=== PATIENT | male | born 1940 | race Two or more races ===

== ENCOUNTER 2021-10-06 13:29 | Outpatient (REF) | payer OTHER, SELFPAY ==
--- NOTE | ~2021-10-06 | XR_ITS ---
EXAMINATION: XR HIP, LEFT CLINICAL INFORMATION: Pain. COMPARISON: None TECHNIQUE: Two views of the left hip. FINDINGS: Bones and soft tissues are normal. No fracture. Alignment is anatomic. Hip joint space is maintained. XR/XR hip LT min 2V IMPRESSION: Unremarkable left hip.
== END 2021-10-06 13:30 | disposition home or self-care (01) ==
LOC: HO.XRAY 13:29
PROVIDERS: PCP Internal Medicine; Visit Provider Internal Medicine
DX: M25.552 Pain in left hip (principal)
CPT/HCPCS: 73502

== ENCOUNTER → 2021-11-06 11:10 | Outpatient (BNVA) | payer OTHER, SELFPAY | PROVIDERS: PCP Internal Medicine; Visit Provider Physician Assistant | DX: M54.16 Radiculopathy, lumbar region (principal) | CPT/HCPCS: 99202 ==

== ENCOUNTER 2021-12-14 11:32 | Outpatient (REF) | payer OTHER, SELFPAY ==
--- NOTE | ~2021-12-14 | XR_ITS ---
EXAMINATION: XR SACROILIAC JOINTS CLINICAL INFORMATION: Sacroiliitis COMPARISON: None TECHNIQUE: 3 views of the sacroiliac joints FINDINGS: Increased sclerosis and near complete fusion of the bilateral sacroiliac joints at the superior aspect. The inferior aspect of the bilateral sacroiliac joints is preserved. XR/XR sacroiliac joint min 3V IMPRESSION: Increased sclerosis and near complete fusion of the bilateral sacroiliac joints at the superior aspect.
--- NOTE | ~2021-12-14 | XR_ITS ---
EXAMINATION: XR lumbar spine 6V w bending CLINICAL INFORMATION: Reason for Exam M54.16 - Radiculopathy, lumbar region COMPARISON: None TECHNIQUE: 6 views of the lumbar spine FINDINGS: 5 nonrib-bearing lumbar-type vertebral bodies. Vertebral body heights are maintained. Alignment is maintained. No subluxation between flexion and extension views. Mild multilevel degenerative disc disease with loss of disc space height, facet arthropathy and disc osteophyte complexes. This is worst at L2/L3. Atherosclerotic calcifications of the abdominal aorta. XR/XR lumbar spine 6V w bending IMPRESSION: 1. Mild spondylosis of the lumbar spine, as above detailed. 2. No significant spondylolisthesis.
== END 2021-12-14 11:33 | disposition home or self-care (01) ==
LOC: HO.XRAY 11:32
PROVIDERS: PCP Internal Medicine; Visit Provider Nurse Practitioner Family
DX: M54.16 Radiculopathy, lumbar region (principal); M46.1 Sacroiliitis, not elsewhere classified; M19.90 Unspecified osteoarthritis, unspecified site; M47.816 Spondylosis without myelopathy or radiculopathy, lumbar region; M25.551 Pain in right hip; M25.552 Pain in left hip
CPT/HCPCS: 72114; 72202; 99202

== ENCOUNTER → 2022-02-09 10:21 | Outpatient (BNVA) | payer OTHER, SELFPAY | PROVIDERS: PCP Internal Medicine; Visit Provider Nurse Practitioner Family | DX: M47.816 Spondylosis without myelopathy or radiculopathy, lumbar region (principal); M46.1 Sacroiliitis, not elsewhere classified; M19.90 Unspecified osteoarthritis, unspecified site; M53.3 Sacrococcygeal disorders, not elsewhere classified | CPT/HCPCS: 99212 ==

== ENCOUNTER 2022-02-10 09:00 | Outpatient (RCR) | payer OTHER, SELFPAY ==
--- NOTE | 2022-01-06 14:45 | MHC.PT.EP ---
[facility] [place] Office [place] Office [place] Office [address] Kofi Diez [address] [phone] F: [phone] F: [phone] F: [phone] F: [phone] Physical Therapy Plan of Care Date of Evaluation: Date of Surgery: NA Diagnosis: SACROILIITIS Assessment: USED [employer] WATCHSTANDER FOR EVAL. Pt IS 82 YO M REFERRED TO PT FROM PAIN MANAGEMENT (DR VOSS). Pt WAS INITIALLY SEEN BY ORTHO IN OCT FOR L HIP/LE PAIN. THOUGHT TO BE LUMBAR RADICULOPATHY AND REFERRED TO PAIN MANAGEMENT. Pt NOW REFERRED TO PT. OF NOTE, SOME CONFUSION ON THE PART OF THE Pt TO WHY REFERRED TO PT. 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 REPORTS PAIN IN HIPS ONLY WITH STAIRS AND INCREASED WALK (REPORTS NO PAIN WHEN JUST SITTING). REPORTS SOME L LE SXS THAT COME AND GO. 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 IF HE WANTS RX FOR R ARM WILL NEED TO GET ANOTHER SCRIPT/OT REFERRAL BUT EXPLAINED THAT 11 YEARS POST CVA SO MAY NOT AFFECT NERVE ISSUE BUT MAY BE ABLE TO AFFECT STRENGTH/FLEXIILITY. Pt WITH GOOD OVERALL HIP LE STRENGTH WITH DECREASED FLEXIBILITY NOTED. PER XRAYS, Pt WITH SPONDYLOSIS AND NEAR COMPLETE FUSION OF SI JTS. Pt MAY BENEFIT FROM SHORT TRIAL OF PT FOR HOME PROG FOR LE STRETCH/STRENGTHEN, CORE WORK ST WORK PRN. OF NOTE, WHEN MAKING APPTS FOR Pt, HIS GRANDDTR WANTED TO START THE 2ND WEEK OF JANUARY BECAUSE SHE IS AND HAS MULTIPLE MD APPTS. Frequency and Duration: The patient will be seen 1X/WK X6WKS Short Term Goals: 1. INCREASED AWARENESS POSTURE AND BACK CARE 2. INCREASED HS FLEX 5 DEGREES B 3. CENTRALIZED SXS OUT OF L LE Contract Manager Goals: 1. DECREASED HIP PAIN AT LEAST 50% WITH ADLS ([facility]) 2. I HEP WITH DC EX PLAN Treatment Plan: Modalities to reduce pain, spasms and effusion. Manual therapy to restore motion and function. Therapeutic exercise to improve strength and flexibility. Neuromuscular re-education for posture and balance. Therapeutic activities to return to functional activities of daily living. Electronically signed by: JUAN CARLOS ANDERS PT Please sign and return to therapist. Thank you for your referral.
--- NOTE | 2022-04-14 14:58 | MHC.PT.DC ---
[facility] [place] Office [place] Office [place] Office [address] Kofi Diez [address] [phone] F: [phone] F: [phone] F: [phone] F: [phone] Physical Therapy Discharge Report Diagnosis: SACROILIITIS Date of Surgery: NA Date of Evaluation: 01/06/22 Date of Discharge: 04/14/22 Treatments to Date: 4 Cancellations to Date: No Shows to Date: Discharge Status: Independent with HEP Recommend MD Follow-up Discharge Summary: Pt SEEN FOR INIT EVAL AND 3 VISITS. AT LAST VISIT ON 02/10/22 AWAITING CALL FOR SI INJECTIONS, ?BENEFIT FROM PELVIC [place] (SUP IN ). ASSESS POSITIONAL TX'. Pt THEN REQUESTED TAKING THE FOLLOWING WEEK OFF FROM PT. Pt THEN NO SHOWED HIS LAST VISIT ON 02/24/22 Electronically signed by: JUAN CARLOS ANDERS PT Please sign and return to therapist. Thank you for your referral.
== END 2022-04-14 14:58 | disposition home or self-care (01) ==
LOC: HO.PTWFD 09:00
PROVIDERS: PCP Internal Medicine; Visit Provider Nurse Practitioner Family
DX: M46.1 Sacroiliitis, not elsewhere classified (principal); M54.16 Radiculopathy, lumbar region; M25.551 Pain in right hip; M25.552 Pain in left hip; M47.816 Spondylosis without myelopathy or radiculopathy, lumbar region; M19.90 Unspecified osteoarthritis, unspecified site
CPT/HCPCS: 97110; 97140; 97162; 97535

== ENCOUNTER 2022-03-18 09:48 | Day surgery (SDC) | payer OTHER, SELFPAY ==
[2022-03-11 11:31] VITALS: BMI 23.2
--- NOTE | 2022-03-17 09:45 | HO.ANESPROP2 ---
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 Social History Social History Are you a primary home health aide caregiver to a significant other at home: No Patient Tobacco Use Status: Former Tobacco user Use of substances other than those prescribed or required for medical reasons: No Are you DNR?: No Advance Directives: No Advance Directives Information Provided: Yes Advance Directives on File: No Recently lost weight without trying: No Nutrition Risks: Surgical patient >75years Poor oral hygiene: No Current occupational status: disabled 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 Meds Allergies Allergy/AdvReac Type Severity Reaction Status Date / Time No Known Allergies Allergy Verified 03/11/22 11:30 Home Medications Medication Instructions Recorded Confirmed Last Taken Type amlodipine 5 mg tablet 5 mg PO DAILY 11/06/21 03/11/22 Unknown History atorvastatin 80 mg tablet 80 mg PO DAILY 11/06/21 03/11/22 Unknown History carboxymethylcellulose 0.5 1 drp ophthalmic (eye) QID 11/06/21 03/11/22 Unknown History %-glycerin 0.9 % eye drops (Refresh Relieva) clopidogrel 75 mg tablet 75 mg PO DAILY 11/06/21 03/11/22 Unknown History finasteride 5 mg tablet 5 mg PO DAILY 11/06/21 03/11/22 Unknown History pantoprazole 20 mg tablet,delayed 20 mg PO BID 11/06/21 03/11/22 Unknown History release tamsulosin 0.4 mg capsule 0.4 mg PO DAILY 11/06/21 03/11/22 Unknown History haloperidol 1 mg tablet 1 mg PO BEDTIME 02/09/22 03/11/22 Unknown History Exam Exam Date and Time: March 17, 2022 0945 Height,Weight and Vital Signs: Height 5 ft 6 in Weight 65.317 kg Assessment and Plan Assessment Anesthesia Assessment: Chart Reviewed Documented by User: Juan Ramon Roa MD 03/18/22 11:16 [facility] Past Medical History Medical History (Updated 03/11/22 @ 11:31 by Tracy Corrales RN) GERD (gastroesophageal reflux disease) High blood pressure High cholesterol 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 Family History Family history of problems with anesthesia: No Surgical History History of Problems with Anesthesia: No Social History Social History Are you a primary home health aide caregiver to a significant other at home: No Patient Tobacco Use Status: Former Tobacco user Use of substances other than those prescribed or required for medical reasons: No Are you DNR?: No Advance Directives: No Advance Directives Information Provided: Yes Advance Directives on File: No Recently lost weight without trying: No Nutrition Risks: Surgical patient >75years Poor oral hygiene: No Current occupational status: disabled 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 Meds Allergies Allergy/AdvReac Type Severity Reaction Status Date / Time No Known Allergies Allergy Verified 03/11/22 11:30 Home Medications Medication Instructions Recorded Confirmed Last Taken Type amlodipine 5 mg tablet 5 mg PO DAILY 11/06/21 03/11/22 Unknown History atorvastatin 80 mg tablet 80 mg PO DAILY 11/06/21 03/11/22 Unknown History carboxymethylcellulose 0.5 1 drp ophthalmic (eye) QID 11/06/21 03/11/22 Unknown History %-glycerin 0.9 % eye drops (Refresh Relieva) clopidogrel 75 mg tablet 75 mg PO DAILY 11/06/21 03/11/22 Unknown History finasteride 5 mg tablet 5 mg PO DAILY 11/06/21 03/11/22 Unknown History pantoprazole 20 mg tablet,delayed 20 mg PO BID 11/06/21 03/11/22 Unknown History release tamsulosin 0.4 mg capsule 0.4 mg PO DAILY 11/06/21 03/11/22 Unknown History haloperidol 1 mg tablet 1 mg PO BEDTIME 02/09/22 03/11/22 Unknown History Exam Airway Mallampati Class: II TM Dist: >3cm Neck ROM: Limited Heart: rrr Lungs: cta Assessment and Plan Assessment Anesthesia Assessment: Anesthesia Plan Discussed Final Anesthetic Review Family History of Problems with Anesthesia: No History of Problems with Anesthesia: No NPO: Yes ASA Class: III Final Preanesthetic Review: No Changes in Pt Med Stat, Meds/Allgs Chart Reviewed, Consent Obtained/Reviewed and Anes Risks/Benef Reviewed Patient Risk: Intermediate Procedure Risk: Low Anesthetic Plan Anesthetic Plan: MAC: and Agree w/ Assess. and Plan Disposition: Standard PACU
--- NOTE | ~2022-03-18 | FL_ITS ---
EXAMINATION: XR FLUOROSCOPY WITH IMAGES CLINICAL INFORMATION: SI joint pain. COMPARISON: None. TECHNIQUE: Fluoroscopy Supervised By: Dr. Migue Celaya. Fluoroscopy Time: 0.4 minutes. Cumulative Dose: 4.03 mGy-cm DAP: 1.09 Gycm2. Images: 2. FINDINGS: There are 2 digital images obtained of the SI joints revealing needle positioned along the left and right SI joints with contrast opacifying the soft tissues. No bony abnormalities seen involving the SI joints. FL/FL guidance in OR IMPRESSION: Fluoroscopy was provided to referring physician for SI joint pain management.
[2022-03-18] MEDS: Lactated Ringers 1,000 ML 100 ML IVCONT (11:09)
--- NOTE | 2022-03-18 11:25 | P.HPSUR_ITS ---
Pre-Procedural Eval Section A Date of Service: 03/18/22 The patient is an INPATIENT: No Changes since office visit: Yes Patient answered all questions The History & Physical has been completed within 30 days and I have reviewed it.: No Section B Chief Complaint: Sacrococcygeal disorders,sacroiliitis Details of Present Illness: as above Relevant Family History (Specify if Yes): No Relevant Social History: None Present Medications: see Short Stay Collaborative assessment Medical History: No relevant PMH History of Previous Operations: No relevant previous surgery Allergies: Allergies Allergy/AdvReac Type Severity Reaction Status Date / Time No Known Allergies Allergy Verified 03/11/22 11:30 Review of Systems Sugical H&P ROS: Negative: Constitution, Cardiovascular, Respiratory, Neurological, Psychiatric, Hem-Onc, Allergic/Immunologic, Gastrointestinal, Genitourinary, Musculoskeletal, Integumentary, Endocrine and Eyes/Ears/Nose/Throat Exam Surgical H&P Exam: Normal: HEENT, Normal: Heart, Normal: Lungs, Normal: Extremities, Normal: Abdomen, Normal: Skin and Normal: Neurological Plan Diagnosis/Plan: Unchanged I have reviewed the history and physical and performed a pertinent physical examination on my patient. No changes have occurred unless specified. power and recovery supervisor ([employer]) was used to obtain the informed consent Time Spent With Patient Time: Total time managing care of this patient today _5___ minutes.
--- NOTE | 2022-03-18 12:02 | P.BOP_ITS ---
Brief Operative Note Date of Service: 03/18/22 Pre-op diagnosis: Sacroiliitis, B/l SI joint pain Post-op diagnosis: same Procedure: bilateral sacroiliac joint injection Surgeon: Migue Celaya MD Anesthesia: MAC Was an Senior Portfolio Manager used for this Procedure?: No Estimated blood loss (mL): 1 Condition: stable Disposition: PACU
--- NOTE | 2022-03-18 12:05 | W.PM.OPN ---
Operative Note Operative Note Date of Service: 03/18/22 Narrative: Therapeutic bilateral sacroiliac joint injection. Informed consent was explained thoroughly to the patient.? All questions about benefits and risks for the procedure were answered. [facility] [place] helping with the consent. ? Patient came to the operating room he was positioned prone on the operating table with the pillow under her pelvis.?ASA monitors were applied and the patient was sedated. ? time out was performed delineating name and of the patient side and site of the injection ? lower back and buttocks was prepped with ChloraPrep prepped and draped with sterile towels.? C-arm was brought over the operating field and sq picture of patient's pelvis was demonstrated on the screen.? For the each joint tilting C-arm contralateral to the site of the joint 15? the most posterior portion of the joints were clearly delineated on the screen first right and after that left..? Skin was injected in the projection of the each joint slightly medial to the location of the joint with 25 gauge 1/2 inch needle using local lidocaine 2% without epinephrine. ? After that 22 gauge 3 and 1/2 inch needle was driven to the each joint in tunnel vision fashion.? When needle entered the joint capsule injection of the contrast was performed demonstrating intra-articular and minimally periarticular spread of the contrast.? After that 4 cc. ofropivacaine 0.5%mixed with kenalog 40 mg was injected into the joint.? Upon completion of the injections the needles was removed, Sterile dressing was applied.? The patient tolerated procedure well.
[2022-03-18 12:06] VITALS: BP 120/59; PULSE 75; RESP 18; TEMP 36.8; O2SAT 100
[2022-03-18 12:21] VITALS: BP 131/60; PULSE 77; RESP 16; TEMP 36.6; O2SAT 97
[2022-03-18 12:36] VITALS: BP 129/52; PULSE 71; RESP 16; TEMP 36.7; O2SAT 99
== END 2022-03-18 12:40 | disposition home or self-care (01) ==
PROVIDERS: PCP Internal Medicine; Visit Provider Anesthesiology
PROC: 3E0U33Z Introduction of Anti-inflammatory into Joints, Percutaneous Approach (ICD-10-PCS; CPT 27096; principal; 2022-03-18 11:30)
DX: M46.1 Sacroiliitis, not elsewhere classified (principal); M53.3 Sacrococcygeal disorders, not elsewhere classified; M47.816 Spondylosis without myelopathy or radiculopathy, lumbar region; M19.90 Unspecified osteoarthritis, unspecified site; K21.9 Gastro-esophageal reflux disease without esophagitis; I10 Essential (primary) hypertension; E78.00 Pure hypercholesterolemia, unspecified; Z79.01 Long term (current) use of anticoagulants; Z79.899 Other long term (current) drug therapy; Z86.73 Personal history of transient ischemic attack (TIA), and cerebral infarction without residual deficits; Z86.718 Personal history of other venous thrombosis and embolism
CPT/HCPCS: G0260; J2795; J3301; Q9965

== ENCOUNTER → 2022-04-29 08:56 | Outpatient (BNVA) | payer OTHER, SELFPAY | PROVIDERS: PCP Internal Medicine; Visit Provider Anesthesiology | DX: M46.1 Sacroiliitis, not elsewhere classified (principal); M47.816 Spondylosis without myelopathy or radiculopathy, lumbar region; M19.90 Unspecified osteoarthritis, unspecified site; M53.3 Sacrococcygeal disorders, not elsewhere classified | CPT/HCPCS: 99212 ==

== ENCOUNTER 2023-03-03 08:01 | Outpatient (REF) | payer OTHER, SELFPAY ==
[2023-03-03 11:40] LABS: MANUAL DIFF FLAG NO
[2023-03-03 11:55] LABS: Basophils Absolute Auto 0.1 X10*3/uL (0.0-0.2); Basophils Percent Auto 0.6 % (0-2); Eosinophils Absolute Auto 0.3 X10*3/uL (0.0-0.4); Eosinophils Percent Auto 2.9 % (0-4); Hematocrit 42.8 % (42.0-52.0); Hemoglobin 13.6 g/dl (14.0-18.0); Imm Gran Abs Auto 0.03 X10*3/uL (0.00-0.03); Imm Gran Pct Auto 0.3 % (0.0-0.4); Lymphocytes Absolute Auto 2.9 X10*3/uL (1.2-4.9); Mean Corpuscular HGB Conc 31.8 g/dl (31.0-36.0); Mean Corpuscular Hemoglobin 30.2 pg (27.0-33.0); Mean Corpuscular Volume 95.1 fL (80.0-98.0); Mean Platelet Volume 12.7 fL (9.4-12.4); Monocytes Absolute Auto 1.2 X10*3/uL (0.1-1.2); Monocytes Percent Auto 12.4 % (2-11); Neutrophils Percent Auto 52.8 % (45-73); Platelet Count 206 X10*3/uL (160-400); Red Cell Distribution Width 14.5 % (11.0-16.0); White Blood Count 9.4 X10*3/uL (4.8-10.8)
[2023-03-03 12:02] LABS: Estimated Average Glucose 108 mg/dL; Hemoglobin A1c % 5.4 % (<6.0)
[2023-03-03 12:15] LABS: Alanine Aminotransferase 19 U/L (0-40); Albumin Level 4.1 g/dL (3.5-5.0); Alkaline Phosphatase 68 U/L (39-117); Anion Gap 11 (12-20); Aspartate Amino Transferase 26 U/L (5-37); Bilirubin Direct 0.3 mg/dL (0.0-0.5); Bilirubin Total 0.7 mg/dL (0.0-1.0); Blood Urea Nitrogen 15 mg/dL (9-16); Calcium 9.2 mg/dL (8.4-10.2); Carbon Dioxide 28 mmol/L (22-29); Chloride 107 mmol/L (96-108); Cholesterol 136 mg/dL (<200); Estimated Glomerular Filt Rate > 60; Glucose Random 97 mg/dL (60-115); HDL Cholesterol 60 mg/dL (>40); LDL Cholesterol Calculated 59 mg/dL (<100); Potassium 4.7 mmol/L (3.3-5.1); Sodium 141 mmol/L (135-145); Total Protein 7.3 g/dL (6.5-8.0); Triglycerides 87 mg/dL (<150)
== END 2023-03-03 08:02 | disposition home or self-care (01) ==
LOC: HO.HHCL 08:01
PROVIDERS: Visit Provider Internal Medicine
DX: I10 Essential (primary) hypertension (principal)
CPT/HCPCS: 36415; 80048; 80061; 80076; 83036; 85025

== ENCOUNTER 2023-03-10 14:29 | Outpatient (AMB) | payer OTHER, SELFPAY ==
--- NOTE | 2023-03-10 14:30 | A.OFFVIS_ITS ---
Intake Vital Signs 03/10/23 14:38 Height 5 ft 6 in Weight 148 lb BMI 23.9 BP 160/71 H Blood Pressure Location Lt brachial Position Sitting Pulse 72 Pulse Source Pulse Oximeter Pulse Oximetry (%) 98 Oxygen Delivery Method Room Air Intake Visit Reasons: Sclerosis of sacroiliac joint/Confirmed Intake Note: Pain today 5/10 Shower Room Attendant Required: Yes Shower Room Attendant Language: Marine Engineer Cpvec Name: Maverick # [id number] Accompanied by: Self / Same As Patient Allergies shellfish derived Adverse Reaction (Verified 03/10/23 14:40) Vomiting HPI HPI Comments History of Present Illness Details Patient presents today for follow up and discussion to repeat therapeutic sacroiliac joint injections. Patient was last seen in our office in April 2022 and reports his low back and sacral area pain with radiation into his lateral hips recently returned. He reports increased pain with changing positions or walking as well as pain during prolonged sitting. Patient reports previous injections provided him 90% pain relief for 11 months with improved mobility, daily functioning and sleep. He denies any axial low back pain or radicular symptoms. Denies any recent cough, cold, infection, fever, abdominal or groin pain, numbness, tingling, foot drop, weakness or recent hospitalizations since last office visit. PRIOR 04/29/22 Dr. Celaya: Mr. Erwin is today in the office accompanied by his son who also helped us to interpret from [place]err[place]ian to Jordanian. He reports that sacroiliac joint injection which was done 03/18/2022 resulted in continues pain relieve since then. It has been now 42 days of pain relief. He reports his pain 0/10 to 1/10. He is very satisfied with the procedures. He was informed that next time he needs pain will come back I will schedule him for bilateral therapeutic sacroiliac joint injection without him visiting us for extra appointment. Half Continues PT since 01/06/22 continues HDP. Complains on pain lower back radiating into bilateral LE. left worse than right. Pain increases with walking or climbing stairs. Patient presents today with axial pain and significant sacroiliac joint pain bilaterally, with left SIJ pain worse than right side with extensive examination for SIJ. His recent imaging showed mild spondylosis of the lumbar spine without significant spondylolisthesis and increased sclerosis and near complete fusion of the bilateral sacroiliac joints at the superior aspect. Patient is hesitant towards interventional treatment but is willing to undergo therapeutic bilateral sacroiliac steroid injections under sedation only. PRIOR: He takes Plavix daily. Left hip xray 10/06/21 was normal. Patient denies any fever, weight changes, abdominal or groin pain, numbness or tingling, bowel or bladder incontinence or saddle anesthesia. Patient ambulates with normal gait without assistive devices PRIOR: Patient presents today for follow up and assess response to physical therapy. He is active with PT and HEP since 01/06/22 and has completed 3 sessions so far. He continues to report bilateral lower back pain that radiates to his bilateral lateral hips, left worse than right. Pain increases with walking or climbing stairs. Patient presents today with axial pain and significant sacroiliac joint pain bilaterally, with left SIJ pain worse than right side with extensive examination for SIJ. His recent imaging showed mild spondylosis of the lumbar spine without significant spondylolisthesis and increased sclerosis and near complete fusion of the bilateral sacroiliac joints at the superior aspect. Patient is hesitant towards interventional treatment but is willing to undergo therapeutic bilateral sacroiliac steroid injections under sedation only. Patient denies any recent trauma, injury or falls. Denies any fever, shortness of breaths, abdominal or groin pain, numbness or tingling, bowel or bladder incontinence or saddle anesthesia. PRIOR: Patient is a pleasant 81 years old Montserratian speaking male who presents today bilateral chronic hip pain. He attributes his hip pain due to arthritis and has started in 2018. Patient was reports history of sciatic pain that would usually radiate to his left buttocks and left lower extremity anteriorly. He denies any back pain today and symptoms are not reproducible with the exam. Patient rates his pain at 0/10. He reports pain comes in his left lateral thigh and hip with prolonged walking only. Reports right upper extremity weakness due to history of CVA. He takes Plavix daily. Left hip xray 10/06/21 was normal. Patient denies any fever, weight changes, abdominal or groin pain, numbness or tingling, bowel or bladder incontinence or saddle anesthesia. Patient ambulates with normal gait without assistive devices. 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 Alert and oriented. Mood and affect appropriate. Follows and participates in conversation appropriately. Respiratory effort is unlabored. No cough. Able to transition from sit to stand unassisted. Mild antalgic gait. Ambulates with bilaterally normal heel strike and toe off. Back/Spine/Pelvis Other: Limited lumbar ROM, with lumbar extension reproducing mild symptoms. No pain with lumbar flexion. Demonstrates 5/5 strength of quadriceps bilaterally as well as flexion/dorsiflexion of bilateral feet against resistance. 2+ pedal pulses bilaterally. Straight leg rise with dorsiflexion negative bilaterally. +1 patellar and achilles reflexes bilaterally. Facet loading test mildly positive bilaterally, L>R. Pelvic compression, Leighton?s, Gaenslen?s and Stinchfield tests are positive bilaterally, left>right. No groin pain with I/E hip rotations bilaterally. Full hip ROM bilat. No tenderness to palpation over the GTB bilaterally. Cervical Spine: cervical ROM normal and No Cervical spine tenderness Thoracic/Lumbar Spine: thoracic and lumbar spine normal to inspection, No Thoracic/lumbar spine scar(s), Lasegue's sign negative, straight leg raise negative bilaterally, thoraco-lumbar ROM limited, No thoracic spinal tenderness and No lumbar spinal tenderness Pelvis: buttock tenderness (upper ) bilaterally Sacroiliac joints: bilaterally tender to palpation Results Reviewed Results Reviewed: XR SACROILIAC JOINTS 12/14/21 FINDINGS: Increased sclerosis and near complete fusion of the bilateral sacroiliac joints at the superior aspect. The inferior aspect of the bilateral sacroiliac joints is preserved. IMPRESSION: Increased sclerosis and near complete fusion of the bilateral sacroiliac joints at the superior aspect. XR lumbar spine 6V w bending 12/14/21 FINDINGS: 5 nonrib-bearing lumbar-type vertebral bodies. Vertebral body heights are maintained. Alignment is maintained. No subluxation between flexion and extension views. Mild multilevel degenerative disc disease with loss of disc space height, facet arthropathy and disc osteophyte complexes. This is worst at L2/L3. Atherosclerotic calcifications of the abdominal aorta. IMPRESSION: 1. Mild spondylosis of the lumbar spine, as above detailed. 2. No significant spondylolisthesis. Assessment & Plan Assessment & Plan (1) Sacroiliitis: Code(s): M46.1 - Sacroiliitis, not elsewhere classified (2) Lumbar spondylosis: Code(s): M47.816 - Spondylosis without myelopathy or radiculopathy, lumbar region (3) Osteoarthritis: Code(s): M19.90 - Unspecified osteoarthritis, unspecified site (4) Sclerosis of sacroiliac joint: Code(s): M53.3 - Sacrococcygeal disorders, not elsewhere classified Plan Schedule for Bilateral Therapeutic Sacroiliac Joint Injections under sedation and fluoroscopy. Lumbar spine imaging showed increased sclerosis and near complete fusion of the bilateral sacroiliac joints at the superior aspect. Patient is hesitant towards interventional treatments including neuromodulation or RFA procedures but is willing to undergo therapeutic injections with sedation only. All questions and concerns have been answered and patient agreed with the plan. Follow up after injections and sooner if needed. Anticoagulation: Patient on anticoagulation (Plavix) and instructions given on when to pause with prescribing physician permission. Justification for interventional therapy: ? Patient with average pain > 6/10 ? Patient has exhausted conservative therapy ? Patient actively performing physical therapy The risks, consequences, alternatives, and benefits of various treatment options were discussed with the patient in great detail, including conservative management, injections and procedures. Patient is aware of hyperglycemic effects of steroids. Coding Level of Care Code Est Pt Level 3 (53977) Diagnoses Sacroiliitis M46.1 Lumbar spondylosis M47.816 Osteoarthritis M19.90 Sclerosis of sacroiliac joint M53.3
[2023-03-10 14:38] VITALS: BP 160/71; PULSE 72; O2SAT 98; BMI 23.9
== END 2023-03-10 14:50 | disposition home or self-care (01) ==
PROVIDERS: PCP Internal Medicine; Visit Provider Nurse Practitioner Family
DX: M46.1 Sacroiliitis, not elsewhere classified (principal); M47.816 Spondylosis without myelopathy or radiculopathy, lumbar region; M19.90 Unspecified osteoarthritis, unspecified site; M53.3 Sacrococcygeal disorders, not elsewhere classified
CPT/HCPCS: 99213

== ENCOUNTER → 2023-03-10 14:29 | Outpatient (BNVA) | payer OTHER, SELFPAY | PROVIDERS: PCP Internal Medicine; Visit Provider Nurse Practitioner Family | DX: M46.1 Sacroiliitis, not elsewhere classified (principal); M47.816 Spondylosis without myelopathy or radiculopathy, lumbar region; M19.90 Unspecified osteoarthritis, unspecified site; M53.3 Sacrococcygeal disorders, not elsewhere classified | CPT/HCPCS: 99212 ==

== ENCOUNTER 2023-04-22 11:25 | Day surgery (SDC) | payer OTHER, SELFPAY ==
--- NOTE | 2023-04-21 10:58 | P.CONAN_ITS ---
Documented by User: Precious Rocha NP 04/21/23 10:59 HPI - Anesthesia Eval Consult details Narrative: 83yo M for Bilateral Therapeutic Sacroiliac Joint Steroid Injection s/p same 02/2022 with MAC Plavix for hx CVA - ok to hold by PCP [facility] Active Problems Active Problems: All Active Problems (Updated 03/11/22 @ 11:31 by Tracy Corrales RN) Sclerosis of sacroiliac joint (Acute) Lumbar spondylosis (Acute) Bilateral hip pain (Acute) Osteoarthritis (Acute) Sacroiliitis (Acute) Lumbar radiculopathy (Acute) Past Medical History Medical History GERD (gastroesophageal reflux disease) 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 High cholesterol High blood pressure Family History Family history of problems with anesthesia: No Surgical History History of Problems with Anesthesia: No Social History Social History Are you a primary career technology teacher to a significant other at home: No Patient Tobacco Use Status: Former Tobacco user Are you DNR?: No Advance Directives: No Advance Directives Information Provided: Yes Recently lost weight without trying: No Nutrition Risks: No Nutritional Risk Current occupational status: disabled 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 Meds Allergies Allergy/AdvReac Type Severity Reaction Status Date / Time shellfish derived AdvReac Vomiting Verified 03/10/23 14:40 Home Medications Medication Instructions Recorded Confirmed Last Taken Type amlodipine 5 mg tablet 5 mg PO DAILY 11/06/21 04/29/22 04/22/23 History atorvastatin 80 mg tablet 80 mg PO DAILY 11/06/21 04/29/22 04/22/23 History carboxymethylcellulose 0.5 1 drp ophthalmic (eye) QID 11/06/21 04/29/22 Unknown History %-glycerin 0.9 % eye drops (Refresh Relieva) clopidogrel 75 mg tablet 75 mg PO DAILY 11/06/21 04/29/22 04/14/23 History finasteride 5 mg tablet 5 mg PO DAILY 11/06/21 04/29/22 04/22/23 History pantoprazole 20 mg tablet,delayed 20 mg PO BID 11/06/21 04/29/22 04/22/23 History release tamsulosin 0.4 mg capsule 0.4 mg PO DAILY 11/06/21 04/29/22 04/22/23 History haloperidol 1 mg tablet 1 mg PO BEDTIME 02/09/22 04/29/22 Unknown History acetaminophen 500 mg tablet mg PO 03/10/23 Unknown History Exam Pertinent Lab Results Pertinent Lab Results: Laboratory Tests 03/03/23 08:03 WBC 9.4 Hgb 13.6 L Hct 42.8 Plt Count 206 Sodium 141 Potassium 4.7 Chloride 107 Carbon Dioxide 28 BUN 15 Creatinine 0.93 Assessment and Plan Assessment Anesthesia Assessment: Chart Reviewed Final Anesthetic Review Family History of Problems with Anesthesia: No History of Problems with Anesthesia: No Documented by User: Yuliet Lamar MD 04/22/23 12:51 [facility] Past Medical History Medical History GERD (gastroesophageal reflux disease) 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 High cholesterol High blood pressure Social History Social History Are you a primary career technology teacher to a significant other at home: No Patient Tobacco Use Status: Former Tobacco user Are you DNR?: No Advance Directives: No Advance Directives Information Provided: Yes Recently lost weight without trying: No Nutrition Risks: No Nutritional Risk Current occupational status: disabled 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 Meds Allergies Allergy/AdvReac Type Severity Reaction Status Date / Time shellfish derived AdvReac Vomiting Verified 03/10/23 14:40 Home Medications Medication Instructions Recorded Confirmed Last Taken Type amlodipine 5 mg tablet 5 mg PO DAILY 11/06/21 04/29/22 04/22/23 History atorvastatin 80 mg tablet 80 mg PO DAILY 11/06/21 04/29/22 04/22/23 History carboxymethylcellulose 0.5 1 drp ophthalmic (eye) QID 11/06/21 04/29/22 Unknown History %-glycerin 0.9 % eye drops (Refresh Relieva) clopidogrel 75 mg tablet 75 mg PO DAILY 11/06/21 04/29/22 04/14/23 History finasteride 5 mg tablet 5 mg PO DAILY 11/06/21 04/29/22 04/22/23 History pantoprazole 20 mg tablet,delayed 20 mg PO BID 11/06/21 04/29/22 04/22/23 History release tamsulosin 0.4 mg capsule 0.4 mg PO DAILY 11/06/21 04/29/22 04/22/23 History haloperidol 1 mg tablet 1 mg PO BEDTIME 02/09/22 04/29/22 Unknown History acetaminophen 500 mg tablet mg PO 03/10/23 Unknown History Exam Airway Mallampati Class: II TM Dist: >3cm Neck ROM: Limited Heart: rrr Lungs: cta Assessment and Plan Assessment Anesthesia Assessment: Anesthesia Plan Discussed Final Anesthetic Review NPO: Yes ASA Class: III Final Preanesthetic Review: No Changes in Pt Med Stat, Meds/Allgs Chart Reviewed, Consent Obtained/Reviewed and Anes Risks/Benef Reviewed Patient Risk: Intermediate Procedure Risk: Low Anesthetic Plan Anesthetic Plan: MAC: Disposition: Standard PACU
--- NOTE | ~2023-04-22 | FL_ITS ---
EXAMINATION: XR FLUOROSCOPY WITH IMAGES CLINICAL INFORMATION: Therapeutic sacroiliac joint steroid injection COMPARISON: None TECHNIQUE: Fluoroscopy Supervised By: Dr. Migue Celaya. Fluoroscopy Time: 0.1 minute. Cumulative Dose: 4.33 mGy. DAP: 1.18 Gycm2. Images: 3. FINDINGS: 3 views of left sacroiliac joint provided by C-arm camera during cortisone injections. FL/FL guidance in OR IMPRESSION: Fluoroscopic assistance
[2023-04-22 11:32] VITALS: BP 153/62; PULSE 82; RESP 18; TEMP 36.2; O2SAT 97; BMI 23.5
[2023-04-22] MEDS: Lactated Ringers 1,000 ML 100 ML IVCONT (11:42)
--- NOTE | 2023-04-22 12:41 | MHC.SHP ---
Pre-Procedural Eval Section A - 24 Hr Update-Section A only Date of Service: 04/22/23 The patient is an INPATIENT: No Changes since office visit: Yes Patient answered all questions The patient has been examined within 24 hours of the surgical procedure. The History & Physical has been completed within 30 days and I have reviewed it.: No Section B - Complete if H&P > 30 days Chief Complaint: Sacrococcygeal disorders,sacroiliitis Details of Present Illness: as above Relevant Family History (Specify if Yes): No Relevant Social History: None Present Medications: None Medical History: No relevant PMH History of Previous Operations: No relevant previous surgery Allergies: Allergies Allergy/AdvReac Type Severity Reaction Status Date / Time shellfish derived AdvReac Vomiting Verified 03/10/23 14:40 Review of Systems Sugical H&P ROS: Negative: Constitution, Cardiovascular, Respiratory, Neurological, Psychiatric, Hem-Onc, Allergic/Immunologic, Gastrointestinal, Genitourinary, Musculoskeletal, Integumentary, Endocrine and Eyes/Ears/Nose/Throat Exam Surgical H&P Exam: Normal: HEENT, Normal: Heart, Normal: Lungs, Normal: Extremities, Normal: Abdomen, Normal: Skin and Normal: Neurological Plan Diagnosis/Plan: Unchanged I have reviewed the history and physical and performed a pertinent physical examination on my patient. No changes have occurred unless specified. Time Spent With Patient Time: Total time managing care of this patient today ____5 minutes.
--- NOTE | 2023-04-22 13:34 | PM.OP ---
Brief Operative Note Date of Service: 04/22/23 Pre-op diagnosis: sacroiliitis Post-op diagnosis: same Procedure: Bitateral therapeutic SI joints injection Surgeon: Migue Celaya MD Anesthesia: MAC Was an [employer] Tower used for this Procedure?: No Estimated blood loss (mL): 0 Condition: stable Disposition: PACU
--- NOTE | 2023-04-22 13:37 | W.PM.OPN ---
Operative Note Operative Note Date of Service: 04/22/23 Narrative: Bilateral therapeutic sacroiliac joint injection Informed consent was explained thoroughly to the patient.? All questions about benefits and risks for the procedure were answered. Patient came to the operating room and was positioned prone on the operating table with the pillow under her pelvis. ASA monitors were applied and the patient was sedated. Time out was performed delineating name and of the patient, site and side of the procedure, nature of the procedure and potential patient?s risks. The lower back of the patient and upper buttocks was prepped with ChloraPrep prepped and draped with sterile utility drapes.? C-arm was brought over the operating field and square picture of patient's pelvis was demonstrated on the screen.? For the right and left joint tilting C-arm contralateral to the site of the joint the posterior joint silhouette was delineated on the screen. Skin projection of the joint was chosen as a target of the injection and it was injected ?slightly medial to the location of the joint with 25 gauge needle using local lidocaine 2% without epinephrine. After that 22 gauge 3 and 1/2 inch needle was driven to the joint silhouette in tunnel vision fashion.? When needle entered the joint capsule injection of the contrast was performed demonstratingno intravascular spread of the contrast. After that 4 cc. of ropivacaine 0.5% mixed with Kenalog 40 mg was injected into each joint. Upon completion of the injections the needle was removed and sterile dressing was applied.? Upon completion of the injection patient was - taken outside of the operating room to the recovery room where recovered uneventfully.?
[2023-04-22 13:42] VITALS: BP 113/47; PULSE 76; RESP 18; TEMP 36.7; O2SAT 97
[2023-04-22 14:02] VITALS: BP 117/51; PULSE 67; RESP 17; TEMP 36.7; O2SAT 98
== END 2023-04-22 14:28 | disposition home or self-care (01) ==
PROVIDERS: Visit Provider Anesthesiology
PROC: 3E0U33Z Introduction of Anti-inflammatory into Joints, Percutaneous Approach (ICD-10-PCS; CPT 27096; principal; 2023-04-22 12:30)
DX: M46.1 Sacroiliitis, not elsewhere classified (principal); M53.3 Sacrococcygeal disorders, not elsewhere classified; Z86.73 Personal history of transient ischemic attack (TIA), and cerebral infarction without residual deficits; M47.896 Other spondylosis, lumbar region; M25.552 Pain in left hip; M25.551 Pain in right hip; I10 Essential (primary) hypertension; E78.00 Pure hypercholesterolemia, unspecified; Z79.899 Other long term (current) drug therapy; Z87.891 Personal history of nicotine dependence
CPT/HCPCS: G0260; J2704; J2795; J3010; J3301; Q9967

== ENCOUNTER → 2023-04-22 11:25 | Outpatient (BNV) | payer OTHER, SELFPAY | PROVIDERS: Visit Provider Anesthesiology | DX: M46.1 Sacroiliitis, not elsewhere classified (principal); M53.3 Sacrococcygeal disorders, not elsewhere classified | CPT/HCPCS: 27096 ==

== ENCOUNTER 2023-05-19 10:18 | Outpatient (AMB) | payer OTHER, SELFPAY ==
--- NOTE | 2023-05-19 10:29 | MHC.OFFVIS ---
Intake Vital Signs 05/19/23 10:40 Height 5 ft 7 in Weight 151 lb BMI 23.6 BP 150/68 H Blood Pressure Location Rt brachial Position Sitting Pulse 78 Pulse Source Pulse Oximeter Pulse Oximetry (%) 99 Oxygen Delivery Method Room Air Intake Visit Reasons: S/p B/l Therapeutic SIJ Injection 04/22/23 Intake Note: Pain today 0/10 Procurement Services Manager Required: Yes Procurement Services Manager Language: Interface Analyst Name: yeyo #[id number] Accompanied by: Self / Same As Patient Allergies shellfish derived Adverse Reaction (Verified 05/19/23 10:41) Vomiting HPI HPI Comments History of Present Illness Details Patient presents today to assess response to Bilateral Therapeutic Sacroiliac Joint Injections on 04/22/[address] Celaya. Patient reports 100% ongoing pain relief since procedure. Patient reports he has improvement in his daily functioning, mobility, range of motions, sleep and social interactions. Patient is very content with outcome of injections and will continue to monitor its longevity. He denies any untoward effects from steroid injections. Denies any recent cough, cold, infection, fever, any significant changes in her medical history, medications or recent hospitalizations. Past Procedures: 04/22/23: Bilateral Therapeutic Sacroiliac Joint Injections-100% ongoing pain relief 03/18/22: Bilateral Therapeutic Sacroiliac Joint Injections-90% pain relief for 11 months PRIOR 04/29/22 Dr. Celaya: Mr. Erwin is today in the office accompanied by his son who also helped us to interpret from [place] to [place]ic. He reports that sacroiliac joint injection which was done 03/18/2022 resulted in continues pain relieve since then. It has been now 42 days of pain relief. He reports his pain 0/10 to 1/10. He is very satisfied with the procedures. He was informed that next time he needs pain will come back I will schedule him for bilateral therapeutic sacroiliac joint injection without him visiting us for extra appointment. [facility] Continues PT since 01/06/22 continues HDP. Complains on pain lower back radiating into bilateral LE. left worse than right. Pain increases with walking or climbing stairs. Patient presents today with axial pain and significant sacroiliac joint pain bilaterally, with left SIJ pain worse than right side with extensive examination for SIJ. His recent imaging showed mild spondylosis of the lumbar spine without significant spondylolisthesis and increased sclerosis and near complete fusion of the bilateral sacroiliac joints at the superior aspect. Patient is hesitant towards interventional treatment but is willing to undergo therapeutic bilateral sacroiliac steroid injections under sedation only. PRIOR: He takes Plavix daily. Left hip xray 10/06/21 was normal. Patient denies any fever, weight changes, abdominal or groin pain, numbness or tingling, bowel or bladder incontinence or saddle anesthesia. Patient ambulates with normal gait without assistive devices PRIOR: Patient presents today for follow up and assess response to physical therapy. He is active with PT and [facility] since 01/06/22 and has completed 3 sessions so far. He continues to report bilateral lower back pain that radiates to his bilateral lateral hips, left worse than right. Pain increases with walking or climbing stairs. Patient presents today with axial pain and significant sacroiliac joint pain bilaterally, with left SIJ pain worse than right side with extensive examination for SIJ. His recent imaging showed mild spondylosis of the lumbar spine without significant spondylolisthesis and increased sclerosis and near complete fusion of the bilateral sacroiliac joints at the superior aspect. Patient is hesitant towards interventional treatment but is willing to undergo therapeutic bilateral sacroiliac steroid injections under sedation only. Patient denies any recent trauma, injury or falls. Denies any fever, shortness of breaths, abdominal or groin pain, numbness or tingling, bowel or bladder incontinence or saddle anesthesia. PRIOR: Patient is a pleasant 81 years old [place] speaking male who presents today bilateral chronic hip pain. He attributes his hip pain due to arthritis and has started in 2018. Patient was reports history of sciatic pain that would usually radiate to his left buttocks and left lower extremity anteriorly. He denies any back pain today and symptoms are not reproducible with the exam. Patient rates his pain at 0/10. He reports pain comes in his left lateral thigh and hip with prolonged walking only. Reports right upper extremity weakness due to history of CVA. He takes Plavix daily. Left hip xray 10/06/21 was normal. Patient denies any fever, weight changes, abdominal or groin pain, numbness or tingling, bowel or bladder incontinence or saddle anesthesia. Patient ambulates with normal gait without assistive devices. 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 Alert and oriented. Mood and affect appropriate. Follows and participates in conversation appropriately. Respiratory effort is unlabored. No cough. Able to transition from sit to stand unassisted. Ambulates with bilaterally normal heel strike and toe off. Results Reviewed Results Reviewed: XR SACROILIAC JOINTS 12/14/21 FINDINGS: Increased sclerosis and near complete fusion of the bilateral sacroiliac joints at the superior aspect. The inferior aspect of the bilateral sacroiliac joints is preserved. IMPRESSION: Increased sclerosis and near complete fusion of the bilateral sacroiliac joints at the superior aspect. XR lumbar spine 6V w bending 12/14/21 FINDINGS: 5 nonrib-bearing lumbar-type vertebral bodies. Vertebral body heights are maintained. Alignment is maintained. No subluxation between flexion and extension views. Mild multilevel degenerative disc disease with loss of disc space height, facet arthropathy and disc osteophyte complexes. This is worst at L2/L3. Atherosclerotic calcifications of the abdominal aorta. IMPRESSION: 1. Mild spondylosis of the lumbar spine, as above detailed. 2. No significant spondylolisthesis. Assessment & Plan Assessment & Plan (1) Sclerosis of sacroiliac joint: Code(s): M53.3 - Sacrococcygeal disorders, not elsewhere classified (2) Osteoarthritis: Code(s): M19.90 - Unspecified osteoarthritis, unspecified site (3) Sacroiliitis: Code(s): M46.1 - Sacroiliitis, not elsewhere classified (4) Lumbar spondylosis: Code(s): M47.816 - Spondylosis without myelopathy or radiculopathy, lumbar region Plan Patient is status post Bilateral Therapeutic Sacroiliac Joint Injections on 04/22/23 with 100% ongoing pain relief. He reports better mobility, better ability to sit and stand, better ability to walk, able to sleep through the night and better social interactions. Patient will continue to monitor his symptoms and notify our office when his baseline SIJ or low back pain returns. Patient is aware that he can not receive another injection in these areas for another three months, but has proven that injections are long-lasting beyond 3 months for him. Patient is aware to monitor for side effects. All questions were answered and the patient is in agreement of plan. Coding Level of Care Code Est Pt Level 3 (58226) Diagnoses Sclerosis of sacroiliac joint M53.3 Osteoarthritis M19.90 Sacroiliitis M46.1 Lumbar spondylosis M47.816
[2023-05-19 10:40] VITALS: BP 150/68; PULSE 78; O2SAT 99; BMI 23.6
== END 2023-05-19 10:49 | disposition home or self-care (01) ==
PROVIDERS: PCP Internal Medicine; Visit Provider Nurse Practitioner Family
DX: M53.3 Sacrococcygeal disorders, not elsewhere classified (principal); M19.90 Unspecified osteoarthritis, unspecified site; M46.1 Sacroiliitis, not elsewhere classified; M47.816 Spondylosis without myelopathy or radiculopathy, lumbar region
CPT/HCPCS: 99213

== ENCOUNTER → 2023-05-19 10:18 | Outpatient (BNVA) | payer OTHER, SELFPAY | PROVIDERS: PCP Internal Medicine; Visit Provider Nurse Practitioner Family | DX: M53.3 Sacrococcygeal disorders, not elsewhere classified (principal); M19.90 Unspecified osteoarthritis, unspecified site; M47.816 Spondylosis without myelopathy or radiculopathy, lumbar region; M46.1 Sacroiliitis, not elsewhere classified | CPT/HCPCS: 99212 ==

== ENCOUNTER 2024-12-27 09:13 | Outpatient (REF) | payer OTHER, SELFPAY ==
--- OUTSIDE RECORDS SUMMARY | 2024-12-27 10:08 | XMS_ITS | Encounter Summary ---
Author Organization [employer] Address [address] [place] [address] Care Team Providers Care Dual Rate Dealer Name Role Phone Bia Cross MD Primary Care Provide r Reason for Visit * Reason Comments Med Refill Encounter Details Date Type Department Care Team ([facility] Contact Info) Description 12/17/2024 Refill [facility] [address], [place] [phone] Bia Cross MD [address], [place] [phone] Benign prostatic hyperplasia, unspecified whether lower urinary tract symptoms present; Gastroesophageal reflux disease, unspecified whether esophagitis present Social History Tobacco Use Types Packs/Day Years Used Date Smoking Tobacco: Never Passive Smoke Exposure: Never Smokeless Tobacco: Never Alcohol Use Standard Drinks/Week Comments Never 0 (1 standard drink = 0.6 oz pur e alcohol) Depression Answer Date Recorded Patient Health Questionnaire-9 Score 2 06/21/2024 Patient Health Questionnaire-9 Score 2 06/21/2024 Last PHQ-9: Questionnaire Data Not on file 0 06/21/2024 Housing Stability Answer Date Recorded What is your housing situation today? I have maluwenceslao saenz 11/25/[address] you li ve. Do you have problems with any of the following? None of the above 11/25/2023 Food Insecurity Answer Date Recorded Within the past 12 months, y ou worried that your food would run out before you got money to buy more: Never True 11/25/2023 Within the past 12 months,th e food you bought just didn't last and you didn't have enough money to get more: Never True 05/2023 Transportation Answer Date Recorded In the past 12 months, has l ack of transportation kept you from medical appts, meetings, work or from getting things needed for daily living? No 11/25/2023 Utilities Answer Date Recorded In the past 12 months, has t he electric, gas, oil or water company threatened to shut off services in your home? No 11/25/2023 Depression Answer Date Recorded Patient Health Questionnaire-2 Score 1 06/21/2024 Internet Access Answer Date Recorded Internet Access Q1 No 11/25/2023 Internet Access Q2 I do not want or need it 05/2023 Sex and Gender Information Value Date Recorded Sex Assigned at Male 12/21/2021 10:39 AM EDT Legal Sex Male 10:39 AM EDT Gender Identity Male 12/21/2021 10:39 AM EDT Sexual Orientation Straight 12/21/2021 10 :39 AM EDT documented as of this encounter Plan of Treatment Upcoming Encounters Date Type Department Care Team (Late st Contact Info) Description 12/27/2024 3:00 PM EST Office Visit [facility] [address] [place] [address] Rodrick Peguero, DMD [address] [place] [address] Arrived 01/01/2025 11:00 AM EST Telemedicine [facility] [address] [place] [address] Bia Cross MD [address] [place] [phone] documented as of this encounter Visit Diagnoses Diagnosis Benign prostatic hyperplasia, unspecified whether lower urinary tract symptoms present Gastroesophageal reflux disease, unspecified whether esophagitis present documented in this encounter Additional Health Concerns Assessment Noted Time PHQ-9 Depression Total Score: 2 06/22/19 25 9:09 AM EDT documented as of this encounter Care Teams Dual Rate Dealer Relationship Specialty Start Date End Date Bia Cross MD [address] [place] [phone] PCP - General Family Medicine 04/03/21 documented as of this encounter
--- OUTSIDE RECORDS SUMMARY | 2024-12-27 10:08 | XMS_ITS | Encounter Summary ---
Author Organization [employer] Address [address] [facility] [address] [place] [address] Care Team Providers Care Credit Collection Specialist Name Role Phone Bia Cross MD Primary Care Provide r Reason for Visit * Reason Comments Med Refill Encounter Details Date Type Department Care Team (Late Contact Info) Description 06/21/2022 Refill [facility] [address], [place] [phone] Ashli Chopra MD [address] [place] [phone] Benign prostatic hyperplasia, unspecified whether lower urinary tract symptoms present Social History Tobacco Use Types Packs/Day Years Used Date Smoking Tobacco: Never Assessed Depression Answer Date Recorded Patient Health Questionnaire-9 Score 0 05/19/2022 Depression Answer Date Recorded Patient Health Questionnaire-2 Score 0 05/19/2022 Sex and Gender Information Value Date Recorded Sex Assigned at Male 12/21/2021 10:39 AM EDT Legal Sex Male 10:39 AM EDT Gender Identity Male 12/21/2021 10:39 AM EDT Sexual Orientation Straight 12/21/2021 10 :39 AM EDT documented as of this encounter Plan of Treatment Upcoming Encounters Date Type Department Care Team (Late Contact Info) Description 12/27/2024 3:00 PM EST Office Visit [facility] [address] [place] [phone] Rodrick Peguero DMD [address] [place] [address] Arrived 01/01/2025 11:00 AM EST Telemedicine [facility] [address] [place] [phone] Bia Cross MD [address] [place] [address] documented as of this encounter Visit Diagnoses Diagnosis Benign prostatic hyperplasia, unspecified whether lower urinary tract symptoms present documented in this encounter Additional Health Concerns Assessment Noted Time PHQ-9 Depression Total Score: 0 05/20/19 23 10:16 AM EDT documented as of this encounter Care Teams Credit Collection Specialist Relationship Specialty Start Date End Date Bia Cross MD [address] [place] [address] PCP - General Family Medicine 04/03/21 documented as of this encounter
--- OUTSIDE RECORDS SUMMARY | 2024-12-27 10:08 | XMS_ITS | Encounter Summary ---
Author Organization [employer] Address [address] [facility] [address] [place] [address] Care Team Providers Care Television Production Clerk Name Role Phone Bia Cross MD Primary Care Provide r Reason for Visit * Reason Comments Med Refill Encounter Details Date Type Department Care Team ([facility] st Contact Info) Description 12/29/2022 Refill [facility] [address] [place], [place] [phone] Bia Cross MD [address] [place] [address] Benign prostatic hyperplasia, unspecified whether lower urinary tract symptoms present Social History Tobacco Use Types Packs/Day Years Used Date Smoking Tobacco: Never Smokeless Tobacco: Never Alcohol Use Standard Drinks/Week Comments Never 0 (1 standard drink = 0.6 oz pur e alcohol) Depression Answer Date Recorded Patient Health Questionnaire-9 Score 0 05/19/2022 Housing Stability Answer Date Recorded What is your housing situation today? I have maluwenceslao saenz 12/12/[address] you li ve. Do you have problems with any of the following? None of the above 12/12/2022 Food Insecurity Answer Date Recorded Within the past 12 months, y ou worried that your food would run out before you got money to buy more: Never True 12/12/2022 Within the past 12 months,th e food you bought just didn't last and you didn't have enough money to get more: Never True Transportation Answer Date Recorded In the past 12 months, has l ack of transportation kept you from medical appts, meetings, work or from getting things needed for daily living? Yes, it has kept me from medical appointments or getting medications. 11/29/2022 Utilities Answer Date Recorded In the past 12 months, has t he electric, gas, oil or water company threatened to shut off services in your home? No 12/12/2022 Depression Answer Date Recorded Patient Health Questionnaire-2 [...] Description 12/27/2024 3:00 PM EST Office Visit [facility] [address] [place] [phone] Rodrick Peguero, DMD [address] [place] [address] Arrived 01/01/2025 11:00 AM EST Telemedicine [facility] [address] [place] [address] Bia Cross MD [address] [place] [address] documented as of this encounter Visit Diagnoses Diagnosis Benign prostatic hyperplasia, unspecified whether lower urinary tract symptoms present documented in this encounter Additional Health Concerns Assessment Noted Time PHQ-9 Depression Total Score: 0 05/20/19 23 10:16 AM EDT documented as of this encounter Care Teams Television Production Clerk Relationship Specialty Start Date End Date Bia Cross MD [address] [place] [phone] PCP - General Family Medicine 04/03/21 documented as of this encounter
--- OUTSIDE RECORDS SUMMARY | 2024-12-27 10:08 | XMS_ITS | Clinical Summary ---
Author Organization [employer] Address [address] [facility] 7[address] [place] [address] Care Team Providers Care Corporation Secretary Name Role Phone Bia Cross MD Primary Care Provide r Allergies Active Allergy Reactions Criticality Noted Date Comments Shellfish Allergy 05/19/2022 Medications Multiple Vitamins-Minerals (Centrum Silver 50+Men) tablet take one daily Active Diclofenac Sodium 1 % gel APPLY 4 GRAMS TOPICALLY 4 TIMES A DAY NEEDED FOR PAIN. APPLY TO SINGLE KNEE, ANKLE, OR FOOT Active Blood Pressure Monitoring (Blood Pressure Cuff) miscIndications:Pr imary hypertension 1 each Once daily. 1 each Active albuterol 108 (90 Base) MCG/ACT inhalerIndications :Irritated throat,Exposure to respiratory irritant,Acute cough Inhale 2 puffs every 6 (six) hours if needed (cough) for up to 14 days. 6.7 g Active acetaminophen (Tylenol 8 Hour) 650 MG ER tabletIndications: Sclerosis of sacroiliac joint Take 2 tablets (1,300 mg) by mouth every 8 (eight) hours if needed for mild pain for up to 20 days. Do not crush, chew, or split. 60 tablet 1 025 2024 Active amLODIPine (Norvasc) 5 MG tabletIndications: Essential hypertension TAKE 1 TABLET BY MOTH EVERY MORNING 90 tablet 1 025 Active atorvastatin (Lipitor) 80 MG tabletIndications: Other hyperlipidemia TAKE 1 TABLET BY MOUTH EVERY DAY 90 tablet 1 025 Active clopidogrel (Plavix) 75 MG tabletIndications: Hemiparesis affecting right side as late effect of cerebrovascular accident (CMS/HCC) (HCC) TAKE 1 TABLET BY MOUTH EVERY DAY 90 tablet 1 Active finasteride (Proscar) 5 MG tabletIndications: Benign prostatic hyperplasia, unspecified whether lower urinary tract symptoms present TAKE 1 TABLET BY MOUTH EVERY DAY 90 tablet 1 025 Active loratadine (Claritin) 10 MG tabletIndications: Seasonal allergies TAKE 1 TABLET BY MOUTH EVERY DAY 90 tablet 1 Active fluticasone (Flonase) 50 MCG/ACT nasal sprayIndications:S easonal allergies Administer 1 spray into each nostril Once per day. 16 g 025 2024 Active pantoprazole (ProtoNix) 20 MG EC tabletIndications: Gastroesophageal reflux disease, unspecified whether esophagitis present Take 1 capsule twice a day.Do not crush, chew, or split. 180 tablet 1 Active tamsulosin (Flomax) 0.4 MG 24 hr capsuleIndications :Benign prostatic hyperplasia, unspecified whether lower urinary tract symptoms present Take 1 capsule by mouth every day 30 minutes after same meal 90 capsule 1 Active amLODIPine (Norvasc) 5 MG tabletIndications: Essential hypertension TAKE 1 TABLET BY MOTH EVERY MORNING 90 tablet 1 2024 Discontinued(R eorder (will not trigger notification to Pharmacy)) atorvastatin (Lipitor) 80 MG tabletIndications: Other hyperlipidemia TAKE 1 TABLET BY MOUTH EVERY DAY 90 tablet 1 025 2024 Discontinued(R eorder (will not trigger notification to Pharmacy)) clopidogrel (Plavix) 75 MG tabletIndications: Hemiparesis affecting right side as late effect of cerebrovascular accident (CMS/HCC) (HCC) TAKE 1 TABLET BY MOUTH EVERY DAY 90 tablet 1 025 2024 Discontinued(R eorder (will not trigger notification to Pharmacy)) pantoprazole (ProtoNix) 20 MG EC tabletIndications: Gastroesophageal reflux disease, unspecified whether esophagitis present Take 1 capsule twice a day.Do not crush, chew, or split. 180 tablet 1 025 2024 Discontinued(R eorder (will not trigger notification to Pharmacy)) tamsulosin (Flomax) 0.4 MG 24 hr capsuleIndications :Benign prostatic hyperplasia, unspecified whether lower urinary tract symptoms present Take 1 capsule by mouth every day 30 minutes after same meal 90 capsule 1 025 2024 Discontinued(R eorder (will not trigger notification to Pharmacy)) finasteride (Proscar) 5 MG tabletIndications: Benign prostatic hyperplasia, unspecified whether lower urinary tract symptoms present TAKE 1 TABLET BY MOUTH EVERY DAY 90 tablet 1 025 2024 Discontinued(R eorder (will not trigger notification to Pharmacy)) loratadine (Claritin) 10 MG tabletIndications: Seasonal allergies TAKE 1 TABLET BY MOUTH EVERY DAY 90 tablet 1 025 2024 Discontinued(R eorder (will not trigger notification to Pharmacy)) fluticasone (Flonase) 50 MCG/ACT nasal spray Administer 1 spray into each nostril Once per day. 16 g 025 2024 Discontinued(R eorder (will not trigger notification to Pharmacy)) Active Problems Problem Noted Date Diagnosed Date Anemia, unspecified 12/27/2024 Benign prostatic hyperplasia without lower urinary tract symptoms 12/27/2024 Gastro-esophageal reflux disease without esophag itis 12/27/2024 Personal history of transien t ischemic attack (TIA), and cerebral infarction without residual deficits 12/27/2024 Sore throat 12/14/2024 Laryngitis 12/14/2024 Assessment & Plan (12/14/2024 3:04 PM EDT): Rapid viral testing negative today, there was probably related to recent URI. I recommended to use Tylenol as needed + Flonase Recommended gargles with warm water and salt or honey + lemon + water. Reconsult as needed fever, worsening of cough, sputum production or shortness of breath Seasonal allergies 06/21/2024 Assessment & Plan (06/21/2024 10:32 AM EDT): I will prescribe loratadine 10mg at bed time Sclerosis of sacroiliac joint 02/23/2023 Assessment & Plan (05/23/2023 2:12 PM EDT): Patient had local injection done, he is happy pain free, he will continue to follow with pain management Sacroiliitis 02/23/2023 Diminished vision 11/26/2022 Polyarthralgia 08/31/2022 Assessment & Plan (08/31/2022 10:37 AM EDT): Continue with acetaminophen PRN White coat syndrome with diagnosis of hypertensi on 08/31/2022 Assessment & Plan (02/23/2023 11:09 AM EST): Patient has high BP reading here at office but always good readings at home Hemiparesis affecting right side as late effect of cerebrovascular accident (CMS/HCC) 04/23/2022 Hip pain 04/23/2022 Assessment & Plan (06/21/2024 10:32 AM EDT): I will prescribed acetaminophen as needed Assessment & Plan (11/25/2023 10:01 AM EDT): C/w acetaminophen PRN Assessment & Plan (05/23/2023 2:13 PM EDT): Acetaminophen PRN Involuntary movements 04/23/2022 Mixed anxiety and depressive disorder 04/23/2022 Pulmonary nodule 04/23/2022 Homeless 04/23/2022 Benign prostatic hyperplasia with nocturia 04/23 Primary hypertension 04/23/2022 Assessment & Plan (06/21/2024 10:32 AM EDT): Today BP is borderline high I prescribed BP cuff and I advised: - Aerobic exercise to reduce BP. Initial goal of 30 min walk 3-5x/week. Increase as tolerated. - low-sodium diet (goal: <2g/day) and heart healthy diet such as DASH to reduce BP and prevent ASCVD. - Home BP monitoring 1-2 x day with goal of <140/90. - Seek immediate medical attention for chest pain, palpitations, SOB, syncope, or sudden changes in mental status. - Do not change or discontinue current prescriptions without first consulting health care provider Assessment & Plan (11/25/2023 10:03 AM EDT): Patient with white coat syndrome today BP in the morning before coming 127/77mmhg Maintenance: BMP: ordered today Lipid Panel: up to date ASCVD Risk: high he is on atorvastatin 80mg and clopidrgel 75mg daily - Aerobic exercise to reduce BP. Initial goal of 30 min walk 3-5x/week. Increase as tolerated. - low-sodium diet (goal: <2g/day) and heart healthy diet such as DASH to reduce BP and prevent ASCVD. - Home BP monitoring 1-2 x day with goal of <140/90. - Seek immediate medical attention for chest pain, palpitations, SOB, syncope, or sudden changes in mental status. - Do not change or discontinue current prescriptions without first consulting health care provider Assessment & Plan (05/23/2023 2:11 PM EDT): Patient has good blood pressure readings at home always 120-130s/70s I advise - Aerobic exercise to reduce BP. Initial goal of 30 min walk 3-5x/week. Increase as tolerated. - low-sodium diet (goal: <2g/day) and heart healthy diet such as DASH to reduce BP and prevent ASCVD. - Home BP monitoring 1-2 x day with goal of <140/90. - Seek immediate medical attention for chest pain, palpitations, SOB, syncope, or sudden changes in mental status. - Do not change or discontinue current prescriptions without first consulting health care provider Assessment & Plan (02/23/2023 11:09 AM EST): - Aerobic exercise to reduce BP. Initial goal of 30 min walk 3-5x/week. Increase as tolerated. - low-sodium diet (goal: <2g/day) and heart healthy diet such as DASH to reduce BP and prevent ASCVD. - Home BP monitoring 1-2 x day with goal of <140/90. - Seek immediate medical attention for chest pain, palpitations, SOB, syncope, or sudden changes in mental status. - Do not change or discontinue current prescriptions without first consulting health care provider Assessment & Plan (11/26/2022 1:09 PM EDT): Maintenance: BMP: up to date Lipid Panel: up to date ASCVD Risk:on max statin - Aerobic exercise to reduce BP. Initial goal of 30 min walk 3-5x/week. Increase as tolerated. - low-sodium diet (goal: <2g/day) and heart healthy diet such as DASH to reduce BP and prevent ASCVD. - Home BP monitoring 1-2 x day with goal of <140/90. - Seek immediate medical attention for chest pain, palpitations, SOB, syncope, or sudden changes in mental status. - Do not change or discontinue current prescriptions without first consulting health care provider Assessment & Plan (08/31/2022 10:36 AM EDT): Patient reports his BP at home is always good today 112/70,mmhg but every time he comes to an appointment his BP goes up - Aerobic exercise to reduce BP. Initial goal of 30 min walk 3-5x/week. Increase as tolerated. - low-sodium diet (goal: <2g/day) and heart healthy diet such as DASH to reduce BP and prevent ASCVD. - Home BP monitoring 1-2 x day with goal of <140/90. - Seek immediate medical attention for chest pain, palpitations, SOB, syncope, or sudden changes in mental status. - Do not change or discontinue current prescriptions without first consulting health care provider Assessment & Plan (05/19/2022 12:13 PM EDT): Maintenance: BMP: Up to date Lipid Panel: up to date Patient is on atorvastatin 80mg daily - Aerobic exercise to reduce BP. Initial goal of 30 min walk 3-5x/week. Increase as tolerated. - low-sodium diet (goal: <2g/day) and heart healthy diet such as DASH to reduce BP and prevent ASCVD. - Home BP monitoring 1-2 x day with goal of <140/90. - Seek immediate medical attention for chest pain, palpitations, SOB, syncope, or sudden changes in mental status. - Do not change or discontinue current prescriptions without first consulting health care provider -I instructed patient to monitor BP at home and if more than 140/90mmhg to let us know for further medication adjustment Mixed hyperlipidemia 04/23/2022 Encounters Date Type Department Care Team Description 12/27/2024 3:00 PM EST Office Visit [facility] [address] [place] [address] Rodrick Peguero DMD Arrived 12/17/2024 9:45 AM EDT Office Visit [address] [address] Bia Cross MD Primary hypertension; Sclerosis of sacroiliac joint; Essential hypertension; Other hyperlipidemia; Hemiparesis affecting right side as late effect of cerebrovascular accident (CMS/HCC) (HCC); Benign prostatic hyperplasia, unspecified whether lower urinary tract symptoms present; Seasonal allergies; Gastroesophageal reflux disease, unspecified whether esophagitis present; Encounter for immunization 12/17/2024 Travel 12/17/[address] [address] Bia Cross MD Benign prostatic hyperplasia, unspecified whether lower urinary tract symptoms present; Gastroesophageal reflux disease, unspecified whether esophagitis present 12/14/2024 2:40 PM EDT Office Visit [facility] [address] [place] [phone] Maeve Bunn MD Laryngitis (Primary Dx) 12/14/2024 1:00 PM EDT Office Visit [facility] [address] [place] [address] Rodrick Peguero DMD 12/14/[address] [address] Bia Cross MD chart prep 12/14/2024 Travel 12/10/2024 Patient Outreach [facility] [address] [place], [place] [phone] Bia Cross MD Pre-visit Planning (SDOH will need to be completed in office. ) 12/04/2024 1:30 PM EDT Office Visit [facility] [address] [place] [address] Rodrick Peguero DMD 10/26/2024 10:00 AM EDT Office Visit [facility] [address] [place] [phone] Mery Cee ANP Irritated throat (Primary Dx); Exposure to chemical irritant; Exposure to respiratory irritant; Primary hypertension; Acute cough 10/26/2024 Travel 10/24/2024 8:00 AM EDT Office Visit [facility] D[facility] [address] [place] [phone] Guy Fuller BDS Partially edentulous mandible, unspecified edentulism class (Primary Dx); Partially edentulous maxilla, unspecified edentulism class from Last 3 Months Immunizations Immunization Administration Dates Next Due Influenza High-dose Quadrivalent Preservative Fr ee 11/26/2022,02/02/2022 Influenza, High Dose Seasonal, Preservative Free 12/17/2024,11/25/2023 Pneumococcal Conjugate PCV 20 08/31/2022 Pneumococcal Polysaccharide PPSV23 05/19/2022 RSV Bivalent 03/03/2023 Zoster, Recombinant 11/02/2022,08/31/2022 Social History Tobacco Use Types Packs/Day Years Used Date Smoking Tobacco: Never Passive Smoke Exposure: Never Smokeless Tobacco: Never Tobacco Cessation:Counseling Given: Not Answered Alcohol Use Standard Drinks/Week Comments Never 0 (1 standard drink = 0.6 oz pur e alcohol) Depression Answer Date Recorded Patient Health Questionnaire-9 Score 2 06/21/2024 Patient Health Questionnaire-9 Score 2 06/21/2024 Last PHQ-9: Questionnaire Data Not on file 0 06/21/2024 Housing Stability Answer Date Recorded What is your housing situation today? I have malu saenz 11/25/[address] you [...] Orientation Straight 12/21/2021 10 :39 AM EDT Last Filed Vital Signs Vital Sign Reading Time Taken Comments Blood Pressure 120/64 12/17/2024 9:36 AM EDT Pulse 72 12/17/2024 9:36 AM EDT Temperature 36.2 C (97.1 F) 12/17/2024 9:36 AM EDT Respiratory Rate 20 12/17/2024 9:36 AM EDT Oxygen Saturation 99% 12/17/2024 9:36 AM EDT Inhaled Oxygen Concentration - - Weight 69.9 kg (154 lb) 12/17/2024 9:36 AM EDT Height 167.6 cm (5' 6 ) 12/17/2024 9:36 AM EDT Body Mass Index 24.86 12/17/2024 9:36 AM EDT Plan of Treatment Upcoming Encounters Date Type Department Care Team (Late st Contact Info) Description 12/27/2024 3:00 PM EST Office Visit [facility] [address] [place] [phone] Rodrick Peguero, JOHNATHON [address] [place] [address] Arrived 01/01/2025 11:00 AM EST Telemedicine [facility] [address] [place] [address] Bia Cross MD [address] [place] [address] Health Maintenance Due Date Last Done Comments Dental X-Ray: Bitewings 1942 Alcohol/Substance Use Screening 1954 DTaP/Tdap/Td Vaccines (1 - Tdap) 1961 COVID-19 Vaccine (1 - 2024-25 season) 2024 SDOH Screening 11/24/2024 11/25/2023 Dental Oral Exam 11/29/2024 05/29/2024 Dental Prophylaxis 11/29/2024 05/29/2024 Depression Screening 06/21/2025 06/21/2024, 06/22/19 Tobacco Screening 12/17/2025 12/17/2024 Dental X-Ray: Full Mouth 05/31/2027 05/29/2024 Lipid Panel 03/03/2028 03/03/2023, 04/06/2021 Pneumococcal Vaccine: 50+ Years Completed 08/31/2022, 05/19/2022 Zoster Vaccines Completed 11/02/2022, 08/31/2022 RSV Patients and Patients Aged 60 years or older Completed 03/03/2023 Influenza Vaccine Completed 12/17/2024, , 11/26/2022, Additional history exists HIB Vaccines Aged Out No longer eligi ble based on patient's age to complete this topic HPV Vaccines Aged Out No longer eligi ble based on patient's age to complete this topic Hepatitis A Vaccines Aged Out No long er eligible based on patient's age to complete this topic Hepatitis B Vaccines Aged Out No long er eligible based on patient's age to complete this topic IPV Vaccines Aged Out No longer eligi ble based on patient's age to complete this topic Meningococcal B Vaccine Aged Out No l onger eligible based on patient's age to complete this topic Meningococcal Vaccine Aged Out No jay john eligible based on patient's age to complete this topic RSV under 20 months Aged Out No longe r eligible based on patient's age to complete this topic Rotavirus Vaccines Aged Out No longer eligible based on patient's age to complete this topic Procedures Procedure Name Priority Date/Time Associated Diagnosis Comments POCT RAPID COVID ANTIGEN Routine 12/14/2024 3:23 PM EDT Laryngitis POC SAAVEDRA ID NOW STREP A Routine 12/14/2024 3:23 PM EDT Laryngitis POCT INFLUENZA B (ID NOW RAPID MOLECULAR) Routine 12/14/2024 3:23 PM EDT Laryngitis WAX TRY IN Routine 12/14/2024 1:00 PM EDT BITE REGISTRATION Routine 12/04/2024 1:3 0 PM EDT DENTURE IMPRESSION Routine 10/24/2024 8: 00 AM EDT PROPHYLAXIS - ADULT Routine 05/29/2024 1 1:00 AM EDT PANORAMIC RADIOGRAPHIC IMAGE Routine 05/29/2024 11:00 AM EDT COMPREHENSIVE ORAL EVALUATION - NEW OR ESTABLISHED PATIENT Routine 05/29/2024 11:00 AM EDT LIPID PANEL, STANDARD Routine 03/03/2023 8:03 AM EST Primary hypertension from Last 3 Months or Most Recently Relevant to Health Maintenance Results * POCT Rapid Influenza B SAAVEDRA ID NOW (12/14/2024 3:23 PM EDT) [facility] Influenza B Negative Negative, Indeterminate [facility] QC [employer] Lot # [id number] [facility] Lot# Expiration Date [facility] Swab 12/14/2024 3:23 PM EDT us Maeve Bunn MD POINT OF CARE TEST ENTER /EDIT ORDERABLES Final Result Performing Organization Address City/State/[facility] Co de Phone Number [facility] [address] [place] [phone] * POCT Rapid Strep A SAAVEDRA ID NOW (12/14/2024 3:23 PM EDT) [facility] Rapid Strep A Screen Negative Negative, None Detected [facility] [place] Lot # [id number] Lot# Expiration Date Swab 12/14/2024 3:23 PM EDT Maeve Bunn MD POINT OF CARE TEST ENTER /EDIT ORDERABLES Final Result * POCT Rapid Covid-19 BinaxNOW (12/14/2024 3:23 PM EDT) [facility] Rapid COVID Ag Negative [facility] [place] Lot # [id number] Lot# Expiration Date [id number] Swab 12/14/2024 3:23 PM EDT us Maeve Bunn MD POINT OF CARE TEST ENTER /EDIT ORDERABLES Final Result * Lipid Panel, Standard (03/03/2023 8:03 AM EST) Triglycerides 87 <150 mg/dL [facility] Comment:Desirable Triglyceri de: less than 150 mg/dLBorderline High Triglyceride 150-199 mg/dLHigh Triglyceride: 200-499 mg/dLVery High Triglyceride: greater than or equal to 5OO mg/dL Cholesterol 136 <200 mg/dL [facility] Comment:Desirable Cholestero l: less than 200 mg/dLBorderline High Cholesterol: 200-239 mg/dLHigh Cholesterol: greater than 239 mg/dL LDL Cholesterol Calculated 59 <100 mg/dL [facility] Comment:Desirable LDL: less than 100 mg/dLNear Optimal/Above Optimal LDL: 110- 129 mg/dLBorderline High LDL: 130-159 mg/dLHigh LDL: 160-189 mg/dLVery High LDL: greater than or equal to 190 mg/dL HDL Cholesterol 60 >40 mg/dL [facility] Comment:Desirable HDL: great er than 40 mg/dL Note: This HDL assay may give artificially low results in patients with liver disease. Blood Venous blood specimen / Unknown 03/03/2023 8:03 AM EST 03/03/2023 11:35 AM EST us Bia Nails MD LAB BLOOD ORDERABLES Final Result [facility] [address] [place] [address] [phone] from Last 3 Months or Most Recently Relevant to Health Maintenance Insurance [facility] OPTIONS (HMO D-SNP) [place] [id number] DENTAL [facility] Care Teams Corporation Secretary Relationship Specialty Start Date End Date Bia Cross MD [address] [place] [id number] PCP - General Family Medicine 04/03/21
--- OUTSIDE RECORDS SUMMARY | 2024-12-27 10:09 | XMS_ITS | Encounter Summary ---
Author Organization [employer] Address [address] [facility] [address] [place] [address] Care Team Providers Care [employer] T[employer] Name Role Phone Bia Cross MD Primary Care Provide r Reason for Visit * Reason Comments Med Refill Encounter Details Date Type Department Care Team ([facility] Contact Info) Description 03/11/2024 Refill [facility] [address] [place], [place] [phone] Bia Cross MD [address] [place], [place] [phone] Gastroesophageal reflux disease, unspecified whether esophagitis present Social History Tobacco Use Types Packs/Day Years Used Date Smoking Tobacco: Never Passive Smoke Exposure: Never Smokeless Tobacco: Never Alcohol Use Standard Drinks/Week Comments Never 0 (1 standard drink = 0.6 oz pur e alcohol) Depression Answer Date Recorded Patient Health Questionnaire-9 Score 2 05/23/2023 Patient Health Questionnaire-9 Score 2 05/23/2023 Last PHQ-9: Questionnaire Data Not on file 0 05/23/2023 Housing Stability Answer Date Recorded What is [...] Date Recorded Patient Health Questionnaire-2 Score 0 05/23/2023 Internet Access Answer Date Recorded Internet Access [...] Description 12/27/2024 3:00 PM EST Office Visit [facility] [address] [place] [address] Rodrick Peguero, [place] [address] [place] [address] Arrived 01/01/2025 11:00 AM EST Telemedicine [facility] [address] [place] [address] Bia Cross MD [address] [place] [address] documented as of this encounter Visit Diagnoses Diagnosis Gastroesophageal reflux disease, unspecified whether esophagitis present documented in this encounter Additional Health Concerns Assessment Noted Time PHQ-9 Depression Total Score: 2 05/23/19 24 1:23 PM EDT documented as of this encounter Care Teams [employer] T[employer] Relationship Specialty Start Date End Date Bia Cross MD [address] [place] [address] PCP - General Family Medicine 04/03/21 documented as of this encounter
--- OUTSIDE RECORDS SUMMARY | 2024-12-27 15:00 | XMS_ITS | Encounter Summary ---
Author Organization [employer] Address [address] [facility] [address] [place] [address] Care Team Providers Care Pocket Secretary Assembler Name Role Phone Bia Cross MD Primary Care Provide r Reason for Visit * Reason Comments Dentures Delivery Encounter Details Date Type Department Care Team ([facility] Contact Info) Description 12/27/2024 3:00 PM EST Office Visit [facility] [address] [place] [address] Rodrick Peguero, [place] [address] [place] [address] Arrived Social History Tobacco Use Types Packs/Day Years [...] Care Team (Late st Contact Info) Description 01/01/2025 11:00 AM EST Telemedicine [facility] [address] [place] [address] Bia Cross MD [address] [place] [address] documented as of this encounter Visit Diagnoses Not on filedocumented in this encounter Additional Health Concerns Assessment Noted Time PHQ-9 Depression Total Score: 2 06/22/19 25 9:09 AM EDT documented as of this encounter Care Teams Pocket Secretary Assembler Relationship Specialty Start Date End Date Bia Cross MD [address] [place] [id number] PCP - General Family Medicine 04/03/21 documented as of this encounter
== END 2024-12-27 09:14 | disposition home or self-care (01) ==
LOC: HO.HHCL 09:13
PROVIDERS: PCP Internal Medicine; Visit Provider Internal Medicine
DX: Z13.89 Encounter for screening for other disorder (principal)

== ENCOUNTER 2025-01-07 10:51 | Outpatient (REF) | payer OTHER, SELFPAY ==
[2025-01-07 13:38] LABS: MANUAL DIFF FLAG NO
[2025-01-07 13:49] LABS: Hematocrit 44.4 % (42.0-52.0); Hemoglobin 14.1 g/dl (14.0-18.0); Imm Gran Abs Auto 0.04 X10*3/uL (0.00-0.03); Imm Gran Pct Auto 0.4 % (0.0-0.4); Lymphocytes Absolute Auto 2.7 X10*3/uL (1.2-4.9); Mean Corpuscular HGB Conc 31.8 g/dl (31.0-36.0); Mean Corpuscular Hemoglobin 30.0 pg (27.0-33.0); Mean Corpuscular Volume 94.5 fL (80.0-98.0); NRBC Abs Auto 0.000 X10*3/uL (0.0-0.012); NRBC Pct Auto 0.0 /100WBC (0.0-0.2); Platelet Count 207 X10*3/uL (160-400); Red Blood Count 4.70 X10*6/uL (4.60-5.80); White Blood Count 9.5 X10*3/uL (4.8-10.8)
[2025-01-07 14:05] LABS: Iron 118 mcg/dL (45-160); Percent Iron Saturation 44 % (15-50); Total Iron Binding Capacity 268 mcg/dL (228-428); Unsaturated Iron Binding 150 ug/dL
[2025-01-07 14:23] LABS: Ferritin 44 ng/mL (20-250)
== END 2025-01-07 10:52 | disposition home or self-care (01) ==
LOC: HO.HHCL 10:51
PROVIDERS: PCP Internal Medicine; Visit Provider Internal Medicine
DX: D64.9 Anemia, unspecified (principal)
CPT/HCPCS: 36415; 82728; 83540; 85025